=== PATIENT | female | born 2000 | race Hispanic/Latino ===

== ENCOUNTER 2024-12-02 20:45 | Emergency (ER) | payer MEDICAID ==
[~2024-12-02] VITALS: Ht 165.1 cm; Wt 63.5 kg
[2024-12-02] MEDS ORDERED: CIPR7.5D7 OTIC (21:48)
--- NOTE | 2024-12-02 21:49 | ERN ---
General Chief Complaint: Earache Stated Complaint: C/O RT EAR PAIN Time Seen by MD: 20:50 Time Seen by Midlevel: 20:50 Source: patient History of Present Illness Initial Comments Patient is a 24-year-old female who is [id number] weeks presenting to the emergency department with right ear pain. She states she has been sick with flu-like symptoms for the last couple of days. Yesterday she developed pain to her right ear. Daughter is sick with similar symptoms. Allergies: Coded Allergies: No Known Drug Allergies (Unverified Allergy, Unknown, 12/02/24) Past Medical History Past Medical History: No Pertinent History Past Surgical History: None Physical Exam Physical Exam Dictation Vital Signs reviewed General Appearance: Alert, oriented x 3, no acute distress, well developed, nourished. Head and Face: non-traumatic. Eyes: PERRL, pink conjunctivas, eyelid no trauma, anterior chamber with arcus senilis. Ears: Pinnas intact and no signs of trauma, mild erythema to the right external canal consistent with otitis externa TM no erythema Nose: No discharge, no bleeding. Oropharynx: Mouth normal, tongue pink, pharynx clear,no erythema, tonsils no exudates, no abscesses noted, mucous membrane moist Neck: Supple, non-tender, no thyromegaly, no masses, no JVD, no bruits Breast:Deferred Chest:No tenderness, no crepitus, no paradoxical movement, no retractions Lungs:Clear, well-ventilated, symmetric, no rales, no wheezing, no rhonchi, no stridor, good breath sounds bilaterally Heart: Regular rate, regular rhythm, no murmur, no gallops Vascular: no peripheral edema, Abdomen: Soft, positive bowel sounds, nondistended, no guarding, nontender, no rebound, no masses no hepatomegaly, no splenomegaly, no Serrano's sign, no hernias. Rectal: Deferred Genital: Deferred Neurological: Normal speech, motor function intact, sensory function intact Musculoskeletal: Neck nontender, full range of motion, back nontender, full range of motion, Extremities: nontender, full range of motion Skin: Color pink, dry, no turgor, no rash, no lacerations, no abrasions, no contusions. Lymphatic: Deferred MDM MDM: Differential diagnosis: Otitis media, otitis externa, viral illness There are no social concerns with this patient. Prescription drug management Prescriptions will include: Ciprodex Medical management and examination interpretation discussions were had by me with other qualified healthcare professionals as indicated for the patient's care. ED Course Orders Procedure Category Date Status Time *Nursing CPOE 12/02/24 Transmitted Communication: 21:08 Vital Signs Date Time Temp Pulse Resp B/P (MAP) Pulse Ox O2 Delivery O2 Flow Rate FiO2 12/02/24 21:00 99.0 90 17 116/73 100 Room Air* 0 21 12/02/24 20:47 101.1 114 20 118/75 99 Room Air DX & DISP Disposition: Discharge Departure Impression: Primary Impression: Right otitis externa Condition: Stable Scripts Ciprofloxacin HCl/Dexameth (Ciproflox-Dexameth Otic Susp) 0.3 %-0.1 % Drops.susp 4 DROP OTIC BID for 7 Days, #7.5 ML 0 Refills Prov: MIRELLA JACOB 12/02/24 Referrals: SELF,REFERRAL (PCP) I have reviewed the case, and I agree with, Diagnosis and Plan I performed the substantive portion of the visit. I have reviewed and personally made and approve the management plan that is documented in the note by myself or the SANJANA. I acknowledge for responsibility for the patient's management plan. MIRELLA JACOB Dec 02, 2024 21:49
[2024-12-02] MEDS: CIPROFLOXACIN HCL/DEXAMETH 7.5 ML DROPS.SUSP OTIC ONE (21:59)
[2024-12-02] MEDS ORDERED: PHARMACY COMMUNICATION MISC SCH (22:00)
[2024-12-02 22:02] VITALS: BP 113/58; PULSE 88; RESP 17; TEMP 98.5; O2SAT 100
== END 2024-12-02 22:06 | disposition home or self-care (01) ==
LOC: EDH 20:45
DX: H60.91 Unspecified otitis externa, right ear (principal)
CPT/HCPCS: 99283